=== PATIENT | female | born 1950 | race Caucasian/White ===

== ENCOUNTER → 2017-01-19 | Day surgery (SDC) | payer BC ==
[~2017-01-19] VITALS: Ht 167.6 cm; Wt 67.8 kg
[~2017-01-19] MED LIST: ASPIRIN EC81 MG PO; CALCIUM 600 +1 EA14 PO; CITRUCEL POWDE850 GM PO; COLACE100 MG PO; CYMBALTA20 MG PO; GLUCOSAMINE CH1 EAC1 PO; HAIR, SKIN & N1 EACH PO; HYDROCHLOROTHIA25 MG PO; K-TAB ER20 MEQ PO; LEVOTHROID (SY50 MCG PO; MEGA RED PO; MOBIC15 MG PO; NEURONTIN300 MG PO; PLAQUENIL200 MG PO; PRILOSEC40 MG PO; TENORMIN25 MG PO; THERA-VITE W/ B1 TAB PO; TORADOL10 MG PO; VESICARE10 MG PO; ZYRTEC10 MG PO
--- NOTE | ~2017-01-19 | OR ---
PAT[facility]: [facility] AGE: 66 Y [address] ROOM: [place] [id number] [place] [facility] [place]: 01/19/[place] OR/Procedure Report DISCHARGE DATE: FAMILY PHYSICIAN: Anali Hagan PA-C ATTENDING PHYSICIAN: Lalit Howe SURGEON: Lalit Howe MD PATENT ATTORNEY: DATE OF PROCEDURE: 01/19/2017 REFERRING PHYSICIAN: . PREOPERATIVE DIAGNOSES: 1. Bladder cancer. 2. Need for chronic IV access. POSTOPERATIVE DIAGNOSES: 1. Bladder cancer. 2. Need for chronic IV access. PROCEDURE PERFORMED: Insertion of a right subclavian vein based power port. ANESTHESIA: IV sedation with 10 mL 1% Xylocaine. ESTIMATED BLOOD LOSS: 30 mL. SPECIMEN: None. INDICATIONS: The patient is a 66-year-old young lady, recently diagnosed with advanced bladder cancer. She did undergo neoadjuvant therapy. The patient had the procedure, benefits, and risks explained. She agreed to proceed. DESCRIPTION OF PROCEDURE: After informed consent, the patient was taken to the operating room. After IV sedation, the anterior right chest and neck were prepped and draped into a sterile field. A time-out was performed. She was placed in Trendelenburg position. Local anesthetic infiltrated beneath the right clavicle and access to the right subclavian vein was accomplished without difficulty. Guidewire positioned in superior vena cava and confirmed with fluoro. Next, local anesthetic infiltrated on top of the anterior right medial chest. A subcutaneous pocket was made on top of the pectoralis fascia. A vessel had bleeding which we had to cauterize. Once the pocket was hemostatic, we then placed an introducer and sheath over the wire, removed the wire and introducer. Through the sheathing, we placed the tubing into the superior vena cava and confirmed with fluoro. We split the sheath to remove it. We tunneled the tubing down to the port where it was connected. The port was secured down with 3-0 silks to the fascia. Subcutaneous tissue was closed PATIENT'S NAME: [facility] AGE: 66 Y [address] ROOM: [place] [id number] [place] [facility]: 01/19/2017 OR/Procedure Report DISCHARGE DATE: FAMILY PHYSICIAN: Anali Hagan PA-C ATTENDING PHYSICIAN: Lalit Howe with 3-0 Vicryl, and skin closed with subcuticular 4-0 Vicryl. Steri-Strips were placed. We accessed the port through the skin, had return of venous blood. It was flushed with saline and hep-locked. Sterile dressing applied. The patient tolerated the procedure well, transferred to recovery room in stable condition. LALIT HOWE MD WTS/modl /[id number] d: 01/19/17 1154 t: 02/02/17 1540, OPERATIVE SUMMARY
== END | disposition disaster alternative care site (69) ==
LOC: GPOC 01-16 17:00 → GSDC 06:15
PROC: 05H533Z Insertion of Infusion Device into Right Subclavian Vein, Percutaneous Approach (ICD-10-PCS; principal; 2017-01-19)
DX: C67.9 Malignant neoplasm of bladder, unspecified (principal); G43.909 Migraine, unspecified, not intractable, without status migrainosus; M19.90 Unspecified osteoarthritis, unspecified site; K21.9 Gastro-esophageal reflux disease without esophagitis; E78.00 Pure hypercholesterolemia, unspecified; I10 Essential (primary) hypertension; Z87.891 Personal history of nicotine dependence; Z96.652 Presence of left artificial knee joint; Z90.710 Acquired absence of both cervix and uterus; Z98.890 Other specified postprocedural states; Z88.5 Allergy status to narcotic agent; Z79.82 Long term (current) use of aspirin; Z79.899 Other long term (current) drug therapy
CPT/HCPCS: C1788; J0690; J1642; J2001; J7120